=== PATIENT | male | born 1935 | race Caucasian/White ===

== ENCOUNTER 2019-06-14 13:57 | Outpatient (CLI) | payer MEDICARE, SELFPAY ==
--- NOTE | ~2019-06-14 | XR_ITS ---
EXAMINATION: SCOLIOSIS DATE: 06/14/2019 14:57 INDICATION: Other idiopathic scoliosis, thoracolumbar region TECHNIQUE: Standing AP and lateral views of the thoracolumbar spine FINDINGS: There are 12 rib bearing thoracic vertebral bodies and 5 non-rib bearing lumbar type verteb ral bodies. There are 4 mm of retrolisthesis of C4 on C5. There are 2 mm of anterolisthesis of L3 on L4. There is severe loss of intervertebral disc space height at multiple levels in the cervical spine . There is also moderate to severe loss of lumbar disc space height. There are 14 degrees of lumbar levoscoliosis. 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 The heart size is normal. A dual -lead cardiac pacemaker of the left chest wall ends with leads in expected locations. IMPRESSION: 1. 14 degrees of lumbar levoscoliosis. 2. Severe cervical spondylosis and moderate to severe lumbar spondylosis. Reviewed, dictated and finalized at location A. NICAL EDITOR
--- NOTE | ~2019-06-14 | XR_ITS ---
EXAMINATION: XR hip BI 2V w AP pelvis DATE: 06/14/2019 14:58 INDICATION: Unspecified abnormalities of gait and mobility TECHNIQUE: AP view the pelvis and two views of each hip were obtained. COMPARISON: None. FINDINGS: Bone alignment is normal. There is no fracture. Moderate bilateral hip osteoarthritis is no dyllan. There are phleboliths of the pelvis. A moderate volume of colonic stool is present. There is mod erate to severe lumbar spondylosis. Calcified atherosclerosis is noted. IMPRESSION: 1. Moderate hip osteoarthritis without acute osseous abnormality. Reviewed, dictated and finalized at location A. ETIC SALES ADVISOR
== END 2019-06-14 13:58 | disposition home or self-care (01) ==
PROVIDERS: PCP Family Medicine; Visit Provider Family Medicine
DX: M41.25 Other idiopathic scoliosis, thoracolumbar region (principal); R26.9 Unspecified abnormalities of gait and mobility; M16.0 Bilateral primary osteoarthritis of hip; M47.892 Other spondylosis, cervical region
CPT/HCPCS: 72082; 73521

== ENCOUNTER 2020-03-25 11:53 | Outpatient (CLI) | payer MEDICARE, SELFPAY ==
[2020-03-25 12:44] LABS: Basophils Percent Auto 0.3 % (0.2-1.2); Eosinophils Absolute Auto 0.1 K/mm3 (0-0.3); Eosinophils Percent Auto 1.5 % (0-4.4); Hematocrit 45.3 % (42.0-52.0); Hemoglobin 14.5 g/dL (14.0-18.0); Immature Granulocyte Absolute 0.02 K/mm3 (0.00-0.031); Immature Granulocyte Percent A 0.3 % (0-0.5); Lymphocytes Absolute Auto 1.95 K/mm3 (0.9-3.2); Lymphocytes Percent Auto 31.9 % (18.3-44.2); Mean Corpuscular Hemoglobin 29.7 pg (26-34); Mean Corpuscular Volume 92.6 fl (80-100); Mean Platelet Volume 9.3 fl (7.4-10.4); Monocytes Absolute Auto 0.5 K/mm3 (0.1-0.6); Monocytes Percent Auto 8.5 % (2.6-8.5); Neutrophils Absolute Auto 3.5 K/mm3 (1.3-6.7); Neutrophils Percent Auto 57.5 % (45.5-73.1); Platelet Count Result 177 k/mm3 (150-375); Red Blood Count 4.89 M/mm3 (4.6-6.20); Red Cell Distribution Width 13.9 % (11.5-14.5); White Blood Count 6.1 K/mm3 (4.5-10.0)
[2020-03-25 13:03] LABS: Alanine Aminotransferase 27 U/L (4-50); Albumin Level 3.8 g/dL (3.5-5.1); Alkaline Phosphatase 80 U/L (38-126); Anion Gap 6 mmol/L (8-16); Aspartate Amino Transferase 34 U/L (17-59); Bilirubin,Total 1.6 mg/dL (0.2-1.3); Blood Urea Nitrogen 22 mg/dL (9-20); Calcium 9.4 mg/dL (8.4-10.2); Carbon Dioxide 31 mmol/L (22-30); Chloride 102 mmol/L (98-107); Estimated Glomerular Filt Rate > 60; Glucose 112 mg/dL (75-110); Potassium 4.3 mmol/L (3.4-5.0); Sodium 139 mmol/L (137-145)
[2020-03-25 13:35] LABS: Prostate Specific Antigen 3.1 ng/mL (< OR = 4.0)
[2020-03-25 13:40] LABS: Free T4 Free Thyroxine 1.06 ng/mL (0.78-2.19)
== END 2020-03-25 11:54 | disposition home or self-care (01) ==
LOC: ANHLAB 11:56
PROVIDERS: PCP Family Medicine; Visit Provider Family Medicine
DX: Z12.5 Encounter for screening for malignant neoplasm of prostate (principal); I10 Essential (primary) hypertension; E03.9 Hypothyroidism, unspecified; R82.2 Biliuria
CPT/HCPCS: 36415; 80048; 80076; 84153; 84439; 84443; 85025; G0103

== ENCOUNTER → 2020-06-09 12:57 | Outpatient (CLI) | payer MEDICARE, SELFPAY ==
[2020-06-10 14:42] LABS: SARS-CoV-2 RNA PCR Negative
== END ==
PROVIDERS: PCP Family Medicine; Visit Provider Nurse Practitioner Family
DX: Z20.822 Contact with and (suspected) exposure to COVID-19 (principal); R53.83 Other fatigue; R50.9 Fever, unspecified
CPT/HCPCS: C9803; U0003; U0005

== ENCOUNTER 2020-06-24 14:21 | Outpatient (CLI) | payer MEDICARE, SELFPAY ==
--- NOTE | ~2020-06-24 | XR_ITS ---
EXAMINATION: XR shoulder RT min 2V INDICATION: Right shoulder pain TECHNIQUE: Four views of the right shoulder are submitted. COMPARISON: None FINDINGS: No fracture is identified. There is cranial migration of the humeral head with respect to t he glenoid. There is moderate glenohumeral and acromioclavicular joint osteoarthritis. There are part ially imaged changes of coronary artery bypass grafting and cardiac pacemaker leads. Severe cervical spondylosis is incidentally noted. IMPRESSION: 1. Radiographic findings consistent with chronic rotator cuff tear. Reviewed, dictated and finalized at location A. [employer]
== END 2020-06-24 14:22 | disposition home or self-care (01) ==
PROVIDERS: PCP Family Medicine; Visit Provider Physician Assistant Medical
DX: M25.511 Pain in right shoulder (principal)
CPT/HCPCS: 73030

== ENCOUNTER 2022-01-23 07:28 | Outpatient (CLI) | payer MEDICARE, SELFPAY ==
--- NOTE | 2022-01-23 | ECHO_ITS ---
Patient Info Name: Dez Krishnan Age: 86 years : 1935 Gender: Male Ht: 64 in Wt: 145 lbs BSA: 1.73 m2 HR: 89 bpm BP: 149 / 103 mmHg Heart Rhythm: Paced Technical Quality: Good Exam Date: 01/23/2022 8:23 AM Exam Location: [facility] Patient Status: Outpatient Admit Date: 01/23/2022 Staff Ordering Physician: PHYSICIAN NOT ON STAFF, NONSTAFF Real Time Trader: Jimena Delatorre RDCS Attending Provider: PHYSICIAN NOT ON STAFF, NONSTAFF Exam Type: CA echo doppler color flow Study Info Indications R06.02 - Shortness of breath Complete two-dimensional, color flow and Doppler transthoracic echocardiogram is performed. Summary 1. Complete two-dimensional, color flow and Doppler transthoracic echocardiogram is performed. 2. Left ventricular chamber dimension is moderately enlarged. 3. Left ventricular systolic function is severely reduced, estimated at 30-35%. 4. Linear artifact in the right atrium suggestive of catheter(s), pacemaker lead(s), or ICD lead(s). 5. Right atrial chamber dimension is moderately enlarged. 6. The aortic valve is normal. 7. There is no mitral valve regurgitation. Left Ventricle Left ventricular chamber dimension is moderately enlarged. Left ventricular systolic function is severely reduced, estimated at 30-35%. The left ventricular diastolic function is grade I diastolic dysfunction. Right Ventricle Right ventricular chamber dimension is normal. Linear artifact in right ventricle suggestive of catheter(s), pacemaker lead(s), or ICD lead(s). Left Atria Left atrial chamber dimension is mildly enlarged. Right Atria Right atrial chamber dimension is moderately enlarged. Linear artifact in the right atrium suggestive of catheter(s), pacemaker lead(s), or ICD lead(s). Aortic Valve The aortic valve is normal. Pulmonic Valve The pulmonic valve is normal. There is trace pulmonic regurgitation. Mitral Valve The mitral valve has normal leaflets. There is no mitral valve regurgitation. Tricuspid Valve The tricuspid valve leaflets are normal. There is mild tricuspid valve regurgitation. Pericardium/Pleural The pericardium appears normal. Aorta The aortic root size at the sinus of Valsalva is normal. Left Ventricular Outflow Tract Name Value Normal LVOT 2D LVOT Diameter 2.1 cm LVOT Doppler LVOT Peak Gradient 4 mmHg LVOT Mean Gradient 2 mmHg LVOT VTI 17 cm LVOT VTI/AV VTI Ratio 0.9 LVOT Stroke Volume 59 ml LVOT CO 12.7 l/min LVOT CI 7.3 l/min/m2 Pulmonic Valve Name Value Normal PV Doppler PV Peak Gradient 2 mmHg Mitral Valve
== END 2022-01-23 07:29 | disposition home or self-care (01) ==
PROVIDERS: PCP Family Medicine
DX: R06.02 Shortness of breath (principal); R53.83 Other fatigue
CPT/HCPCS: 93306

== ENCOUNTER 2022-06-04 13:25 | Outpatient (CLI) | payer MEDICARE, SELFPAY ==
--- NOTE | ~2022-06-04 | CT_ITS ---
CT of the Abdomen and Pelvis: Indication: Hematospermia Technique: 2.5 mm axial scans were obtained through the abdomen and pelvis prior to and following in travenous administration of 130 cc of Omnipaque 350. Dose reduction technique was used on this scan b y utilizing automated exposure control and iterative reconstruction technique. The dose-length produc t (DLP) was 849.00 mGy-cm. Findings: Scans through the lung bases demonstrate right basilar scarring or atelectasis. The liver, spleen, pancreas, adrenals and kidneys are within normal limits. Calcified gallstones are present. Infrarenal abdominal aortic aneurysm measures up to 4.7 cm in maximum diameter. No lymphade nopathy. No bowel obstruction or bowel wall thickening. There is no evidence to suggest acute appendicitis. Images through the pelvis were performed. Urinary bladder unremarkable. Prostate gland is mildly enla rged. Impression: 4.7 cm infrarenal abdominal aortic aneurysm. Cholelithiasis. Mildly enlarged prostate gland. Reviewed, dictated and finalized at [facility]. [employer]URNER Impression: 4.7 cm infrarenal abdominal aortic aneurysm. Cholelithiasis. Mildly enlarged prostate gland.
[2022-06-04 14:27] LABS: Estimated Glomerular Filt Rate > 60
== END 2022-06-04 13:26 | disposition home or self-care (01) ==
LOC: ANHIMG 13:27
PROVIDERS: PCP Family Medicine; Visit Provider Urology
DX: R36.1 Hematospermia (principal); I71.40 Abdominal aortic aneurysm, without rupture, unspecified; K80.20 Calculus of gallbladder without cholecystitis without obstruction; N40.0 Benign prostatic hyperplasia without lower urinary tract symptoms
CPT/HCPCS: 74178; Q9967

== ENCOUNTER 2022-07-07 16:57 | Emergency (ER) | payer MEDICARE, SELFPAY ==
--- NOTE | 2022-07-07 17:01 | ED.WOUNDLAC ---
HPI - Wound/Laceration General Chief Complaint: Skin/Abscess/Foreign Body Stated Complaint: fall causing lac to right arm Time Seen by Provider: 07/07/22 17:01 Source: patient, family and RN notes reviewed History of Present Illness HPI narrative: Patient is an 87-year-old male who presents to Urgent Care with his spouse with complaints of a laceration to the right arm. Patient states that he fell onto his right elbow after stumbling over his own feet outside today. Patient states that happened approximately 30 minutes prior to arrival. Patient did not lose consciousness nor did he his head. Patient does have an updated tetanus shot. Patient applied pressure and came straight to the facility. No other acute complaints or injuries. No acute distress noted. Patient and spouse aware of the plan of care. Some parts of this dictation were generated by voice recognition software and may contain typographical and/or grammatical inaccuracies. Related Data Home Medications Medication Instructions Recorded Confirmed atorvastatin 40 mg tablet 40 mg PO DAILY 06/14/19 07/07/22 carboxymethylcellulose sodium 0.5 1 drop ophthalmic (eye) BID 06/14/19 07/07/22 % eye drops (Refresh Tears) levothyroxine 150 mcg tablet 150 mcg PO DAILY 06/14/19 07/07/22 metoprolol tartrate 50 mg tablet 50 mg PO Q12H 06/14/19 07/07/22 losartan 100 mg tablet 50 mg PO DAILY 03/24/20 07/07/22 aspirin 81 mg tablet,delayed 81 mg PO DAILY 04/13/22 07/07/22 release (Adult Aspirin Regimen) Allergies Allergy/AdvReac Type Severity Reaction Status Date / Time neomycin Allergy Severe Rash Verified 07/07/22 17:03 bacitracin Allergy Unknown Rash Verified 07/07/22 17:03 polymyxin B Allergy Unknown Rash Verified 07/07/22 17:03 Review of Systems Review of Systems: CONSTITUTIONAL: Denies fever, chills, or sweats. EYES: Denies visual changes, redness, or discharge. ENT: Denies rhinorrhea, congestion, sore throat, or otalgia. CARDIOVASCULAR: Denies chest pain, palpitations, or edema. RESPIRATORY: Denies cough or dyspnea. GASTROINTESTINAL: Denies abdominal pain, nausea, vomiting, or diarrhea. GENITOURINARY: Denies dysuria or hematuria. SKIN: Reports of a laceration to the right elbow MUSCULOSKELETAL: Denies back pain, joint pain, or myalgia. NEUROLOGIC: Denies headache, numbness, or weakness. All other systems reviewed are negative, except as documented in HPI. [facility] Past Medical History Medical History Abnormal gait Bilirubin in urine BMI 24.0-24.9, adult H/O acute pancreatitis H/O cardiac pacemaker Lethargic Right shoulder pain Scoliosis Screening for prostate cancer Family History Family History Mother Family history of diabetes mellitus in first degree relative Father Sibling No problems noted. 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 There is no relevant family history pertinent to the patient complaint. Exam Narrative: GENERAL: This is a well-nourished, well-developed patient, in no apparent distress.
[2022-07-07 17:10] VITALS: BP 172/79; PULSE 67; RESP 16; TEMP 36.6; O2SAT 97
[2022-07-07 17:11] VITALS: BP 172/79; PULSE 67; RESP 16; TEMP 36.6; O2SAT 97
== END 2022-07-07 18:00 | disposition home or self-care (01) ==
PROVIDERS: Emergency Provider Nurse Practitioner Family; PCP Family Medicine
DX: S51.011A Laceration without foreign body of right elbow, initial encounter (principal); W01.0XXA Fall on same level from slipping, tripping and stumbling without subsequent striking against object, initial encounter; Z95.0 Presence of cardiac pacemaker; Z79.82 Long term (current) use of aspirin
CPT/HCPCS: 99213; G0463

== ENCOUNTER → 2022-11-26 14:00 | Outpatient (CLI) | payer MEDICARE, SELFPAY ==
--- NOTE | ~2022-11-26 | XR_ITS ---
EXAM: XR lumbar spine 2-3V DATE: 11/26/2022 14:36 HISTORY: M54.50 - Low back pain, unspecified . COMPARISON: 06/14/2019. FINDINGS: Cholelithiasis. Mild lumbar scoliosis. 5 nonrib-bearing lumbar-type vertebral bodies. Pedic les intact. Normal vertebral body alignment. Vertebral body heights preserved. Multilevel moderate an d severe disc space narrowing with moderate marginal osteophytosis. Vacuum phenomenon at all levels. Multilevel moderate-severe facet sclerosis and hypertrophy. No fracture or dislocation. 5.0 cm infrar enal abdominal aortic aneurysm. IMPRESSION: 5 cm infrarenal abdominal aneurysm, recommend follow-up CTA of the abdomen/pelvis in 3-6 months. Multilevel severe lumbar degenerative disc disease. Multilevel moderate-severe lumbar facet arthropathy. Reviewed, dictated and finalized at location K. IMPRESSION: 5 cm infrarenal abdominal aneurysm, recommend follow-up CTA of the abdomen/pelv is in 3-6 months. Multilevel severe lumbar degenerative disc disease. Multilevel moderate-severe lumbar facet arthropathy.
--- NOTE | ~2022-11-26 | XR_ITS ---
EXAM: XR hip RT 2V w AP pelvis DATE: 11/26/2022 14:36 HISTORY: M25.551 - Pain in right hip . COMPARISON: 06/14/2019. FINDINGS: Lumbar degenerative disc disease. Mild degenerative change in the bilateral SI joints and pubic symphysis, with chondrocalcinosis at the pubic symphysis. Moderate bilateral hip osteoarthritis , with chondrocalcinosis. Pelvic and hip enthesopathy. Scattered vascular calcifications. Pelvic phle boliths. No fracture or dislocation. IMPRESSION: Moderate bilateral hip osteoarthritis. Reviewed, dictated and finalized at location K.
== END ==
PROVIDERS: PCP Nurse Practitioner Family; Visit Provider Nurse Practitioner Family
DX: M51.36 Other intervertebral disc degeneration, lumbar region (principal); I71.43 Infrarenal abdominal aortic aneurysm, without rupture; M16.0 Bilateral primary osteoarthritis of hip
CPT/HCPCS: 72100; 73502

== ENCOUNTER 2023-09-25 13:20 | Emergency (ER) | payer OTHER, SELFPAY ==
[2023-09-25 13:29] VITALS: BP 141/71; PULSE 75; RESP 16; TEMP 36.4; O2SAT 98
--- NOTE | 2023-09-25 14:06 | ED.EYEPROB ---
HPI - Eye Problem General Chief complaint: Eye Problems Stated complaint: Eye Problem Time Seen by Provider: 09/25/23 14:06 Source: patient, RN notes reviewed and old records reviewed Mode of arrival: ambulatory Limitations: no limitations History of Present Illness HPI Narrative: 88-year-old male to [facility] for complaint of bilateral eye inflammation and irritation for 1 day. Patient endorses being outside yesterday helping his transplant perennials in their yard. Patient states that he noticed the symptoms shortly after being outside. Patient denies pain, visual changes, recent illness, fever. Patient short endorses history of detached retina on the right side. Patient in no acute distress. Related Data Home Medications Medication Instructions Recorded Confirmed atorvastatin 40 mg tablet 40 mg PO DAILY 06/14/19 05/03/23 carboxymethylcellulose sodium 0.5 1 drop ophthalmic (eye) BID 06/14/19 05/03/23 % eye drops (Refresh Tears) levothyroxine 150 mcg tablet 150 mcg PO DAILY 06/14/19 05/03/23 metoprolol tartrate 50 mg tablet 50 mg PO Q12H 06/14/19 05/03/23 losartan 100 mg tablet 50 mg PO DAILY 03/24/20 05/03/23 aspirin 81 mg tablet,delayed 81 mg PO DAILY 04/13/22 05/03/23 release (Adult Aspirin Regimen) clopidogrel 75 mg tablet mg PO DAILY 05/03/23 05/03/23 Allergies Allergy/AdvReac Type Severity Reaction Status Date / Time neomycin Allergy Severe Rash Verified 09/25/23 13:42 bacitracin Allergy Unknown Rash Verified 09/25/23 13:42 polymyxin B Allergy Unknown Rash Verified 09/25/23 13:42 Review of Systems Review of Systems: All systems reviewed & are unremarkable except as noted in HPI and below Constitutional: Constitutional: Reports no additional constitutional complaints Eyes: Eyes: Reports as per HPI, Denies change in vision, Reports irritation, Reports itchy eyes and Denies eye pain ENT: Reports system reviewed and no additional complaints, except as documented Cardiovascular: Cardiovascular: Reports no additional cardiovascular complaints, Denies chest pain and Denies dyspnea Respiratory: Respiratory: Reports no additional respiratory complaints, Denies cough and Denies dyspnea Musculoskeletal: Musculoskeletal: Reports no additional musculoskeletal complaints Neurologic: Reports system reviewed and no additional complaints, except as documented Psychiatric: Psychiatric: Reports no additional psychiatric complaints PMFSH Past Medical History Medical History Abnormal gait Bilirubin in urine BMI 24.0-24.9, adult H/O acute pancreatitis H/O cardiac pacemaker Lethargic Right shoulder pain Scoliosis Screening for prostate cancer Family History Family History Mother Family history of diabetes mellitus in first degree relative Father Sibling No problems noted. 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 There is no relevant family history pertinent to the patient complaint. Exam Const: General: cooperative, health
== END 2023-09-25 14:33 | disposition home or self-care (01) ==
PROVIDERS: Emergency Provider Nurse Practitioner Family; PCP Family Medicine
DX: H10.9 Unspecified conjunctivitis (principal); Z95.0 Presence of cardiac pacemaker; Z79.82 Long term (current) use of aspirin
CPT/HCPCS: 99213; G0463